=== PATIENT | female | born 1975 | race African-American/Black ===

== ENCOUNTER 2016-05-05 10:56 | Day surgery (SDC) | payer BC ==
[~2016-05-05 10:56] MED LIST: PROPOFOL INJ 200 MG/20 ML VIAL IV ONE
[2016-05-05 13:22] VITALS: BP 114/84
--- NOTE | 2016-05-05 13:40 | Operative Report ---
Operative Report DATE OF SURGERY: 05/05/16 Operative Report: The risks benefits and alternatives of the procedure explained to the patient in detail and informed consent is obtained that GIF Olympus video scope was inserted into the patient's mouth and hypopharynx the esophagus is identified intubated and insufflated the scope was then advanced through the esophagus stomach and duodenum retroflexion maneuver is done the esophagus stomach and first and second portions of the duodenum examined PREOPERATIVE DIAGNOSIS: Epigastric pain POSTOPERATIVE DIAGNOSIS: Gastritis status post biopsy rule out Helicobacter pylori OPERATION: EGD with biopsy SURGEON: CARITO HESS ANESTHESIA: LMAC TISSUE REMOVED OR ALTERED: Gastric specimens obtained rule out Helicobacter pylori COMPLICATIONS: None. ESTIMATED BLOOD LOSS: none. INTRAOPERATIVE FINDINGS: Normal esophagus no stricture noted. Gastritis, no ulcer noted. First and second portions of the duodenum are normal. PROCEDURE: Patient tolerated the procedure well. No immediate postprocedure complications are noted. Patient is discharged in good condition. Discharge date 05/05/2016. Discharge diet: Regular. Discharge activity: Regular. Patient does have a 2-3 week follow-up to discuss findings. She is instructed to call the office or proceed to the emergency room should there be any further problems or questions. We'll await on biopsies and contact patient earlier if needed
== END 2016-05-05 13:18 | disposition home or self-care (01) ==
LOC: END 10:56
PROVIDERS: ATTEND Internal Medicine Gastroenterology
PROC: 0DB68ZX Excision of Stomach, Via Natural or Artificial Opening Endoscopic, Diagnostic (ICD-10-PCS; principal; 2016-05-05 14:00)
DX: K29.50 Unspecified chronic gastritis without bleeding (principal); B96.81 Helicobacter pylori [H. pylori] as the cause of diseases classified elsewhere; Z79.899 Other long term (current) drug therapy; Z88.6 Allergy status to analgesic agent
CPT/HCPCS: 43239; 88342 ×2; 88305 ×2; J2704; 740